=== PATIENT | female | born 1940 | race Caucasian/White ===

== ENCOUNTER 2023-02-10 17:30 | Inpatient (IN) ==
[2023-02-10] MEDS ORDERED: NS 0.9% 1000 ml BAG 1,000 ML IV ONE (17:38)
[2023-02-10] MEDS ORDERED: Magnesium Sulfate 2 gm BAG 2 GM/50 ML BAG IVPB ONE (17:41)
[2023-02-10 17:48] LABS: ABS Eosinophils 0.2 10^3/uL (0.0-0.5); ABS Lymphocytes 1.3 10^3/uL (1.0-4.8); ABS Monocytes 0.5 10^3/uL (0.0-0.9); ABS Nucleated RBC 0.01 10^3/ul; Eosinophil % 2.6 %; Hematocrit 36.3 % (35-45); Hemoglobin 12.3 g/dL (11.5-14.3); Lymphocyte % 21.4 %; Mean Corpuscular Hgb Conc 33.8 g/dL (31-36); Mean Corpuscular Volume 82.9 fL (80-97); Mean Platelet Volume 7.5 fL (7.5-11.2); Nucleated Red Blood Cells % 0.1 /100 WBC (0.0-0.4); Platelet Count 178 10^3/uL (150-450); Red Blood Count 4.38 10^6/uL (3.63-4.92); Red Cell Distribution Width 14.8 % (12-17); White Blood Count 5.9 10^3/uL (3.8-11.8)
[2023-02-10 17:57] LABS: Activated Partial Thrombo Time 29.4 seconds (26.0-38.0); INR 1.1 (0.88-1.18)
[2023-02-10 18:05] LABS: Albumin 3.2 g/dL (3.2-5.2); Albumin/Globulin Ratio 0.9 (1-3); C Reactive Protein 23.93 mg/L (<8.01); Calcium 9.1 mg/dL (8.6-10.3); Creatinine, Serum 0.78 mg/dL (0.51-0.95); Globulin 3.6 g/dL (2-4); Magnesium 1.9 mg/dL (1.9-2.7); Potassium 3.9 mmol/L (3.5-5.0); Total Bilirubin 0.5 mg/dL (0.2-1.0); Total Protein 6.8 g/dL (6.4-8.9); eGFR CKD-EPI 75.3 (>60)
[2023-02-10 19:18] LABS: Urine Appearance Clear; Urine Bilirubin Negative (Negative); Urine Blood Negative (Negative); Urine Color Yellow; Urine Glucose Negative (Negative); Urine Ketones Negative (Negative); Urine Nitrite Negative (Negative); Urine Protein Negative (Negative); Urine Specific Gravity 1.011 (1.002-1.030); Urine Urobilinogen Negative (Negative)
[2023-02-10 19:22] LABS: High Sensitivity Troponin 1 Hr 9 pg/mL (<15)
[2023-02-10] MEDS ORDERED: Iohexol 350 (CONTRAST) 500 ML MDV IV ONE (19:37)
[2023-02-10] MEDS ORDERED: Acetaminophen IV 1 GM/100ML 1,000 MG/100 ML BAG IV ONE (20:53)
[2023-02-10 23:27] LABS: HDL Cholesterol 25.3 mg/dL
[2023-02-10 23:41] LABS: TSH Ultra Thyroid Stim Horm 0.98 mcIU/mL (0.34-5.60)
[2023-02-11] MEDS ORDERED: Acetaminophen IV 1 GM/100ML 1,000 MG/100 ML BAG IV PRN (00:07)
[2023-02-11] MEDS ORDERED: Enoxaparin 40 MG/0.4 ML SYR SUBCUT SCH (04:00)
[2023-02-11] MEDS: Ondansetron 4 mg VIAL 2 MG/ML 2 ml VIAL IV PRN ×2 (04:23→10:57)
[2023-02-11 07:06] LABS: Hematocrit 37.5 % (35-45); Hemoglobin 12.7 g/dL (11.5-14.3); Mean Corpuscular Hemoglobin 28.1 pg (27-33); Mean Corpuscular Hgb Conc 33.8 g/dL (31-36); Mean Corpuscular Volume 83.2 fL (80-97); Mean Platelet Volume 7.9 fL (7.5-11.2); Platelet Count 183 10^3/uL (150-450); Red Blood Count 4.51 10^6/uL (3.63-4.92); Red Cell Distribution Width 14.4 % (12-17); White Blood Count 7.7 10^3/uL (3.8-11.8)
[2023-02-11 07:28] LABS: Albumin 3.1 g/dL (3.2-5.2); Calcium 8.7 mg/dL (8.6-10.3); Creatinine, Serum 0.68 mg/dL (0.51-0.95); Globulin 3.2 g/dL (2-4); Magnesium 2.2 mg/dL (1.9-2.7); Potassium 3.8 mmol/L (3.5-5.0); Total Bilirubin 0.4 mg/dL (0.2-1.0); Total Protein 6.3 g/dL (6.4-8.9); eGFR CKD-EPI 86.4 (>60)
[2023-02-11] MEDS ORDERED: Acetaminophen IV 1 GM/100ML 1,000 MG/100 ML BAG IV ONE ×2 (09:14→10:30)
[2023-02-11] MEDS ORDERED: Gadoteridol (CONTRAST) 279.3 MG/ML 10 ML IV ONE (09:37)
[2023-02-11] MEDS ORDERED: Acyclovir IV 600 MG in NS 0.9% 250 ml 250 ML IVPB SCH (12:00)
[2023-02-11] MEDS: Acyclovir IV 600 MG in NS 0.9% 100 ml BAG 100 ML IVPB SCH ×2 (12:47→19:47)
[2023-02-11] MEDS ORDERED: Lactated Ringers 1000 ml BAG 1,000 ML IV SCH (14:00)
[2023-02-11] MEDS ORDERED: Iohexol 350 (CONTRAST) 500 ML MDV IV ONE (14:07)
[2023-02-11] MEDS ORDERED: Ondansetron 4 mg VIAL 2 MG/ML 2 ml VIAL IV PRN (17:02)
[2023-02-11] MEDS: Acetaminophen IV 1 GM/100ML 1,000 MG/100 ML BAG IV PRN (20:56)
[2023-02-12] MEDS ORDERED: Morphine 2 MG/ML SYRINGE IV ONE (00:29)
[2023-02-12] MEDS: Acetaminophen IV 1 GM/100ML 1,000 MG/100 ML BAG IV PRN ×3 (04:03→19:43)
[2023-02-12] MEDS: Acyclovir IV 600 MG in NS 0.9% 100 ml BAG 100 ML IVPB SCH ×3 (04:20→23:47)
[2023-02-12 07:01] LABS: ABS Lymphocytes 1.2 10^3/uL (1.0-4.8); ABS Monocytes 0.5 10^3/uL (0.0-0.9); ABS Neutrophils 5.7 10^3/uL (1.5-7.6); ABS Nucleated RBC 0.01 10^3/ul; Eosinophil % 0.5 %; Hematocrit 35.2 % (35-45); Hemoglobin 12.1 g/dL (11.5-14.3); Lymphocyte % 16.7 %; Mean Corpuscular Hemoglobin 28.4 pg (27-33); Mean Corpuscular Hgb Conc 34.3 g/dL (31-36); Mean Corpuscular Volume 82.7 fL (80-97); Mean Platelet Volume 7.9 fL (7.5-11.2); Nucleated Red Blood Cells % 0.1 /100 WBC (0.0-0.4); Platelet Count 221 10^3/uL (150-450); Red Blood Count 4.26 10^6/uL (3.63-4.92); Red Cell Distribution Width 14.3 % (12-17); White Blood Count 7.4 10^3/uL (3.8-11.8)
[2023-02-12 07:12] LABS: Albumin/Globulin Ratio 0.9 (1-3); Calcium 8.9 mg/dL (8.6-10.3); Creatinine, Serum 0.67 mg/dL (0.51-0.95); Globulin 3.2 g/dL (2-4); Potassium 3.9 mmol/L (3.5-5.0); Total Bilirubin 0.5 mg/dL (0.2-1.0); Total Protein 6.2 g/dL (6.4-8.9); eGFR CKD-EPI 86.7 (>60)
[2023-02-12] MEDS ORDERED: D5LR 1000 ml BAG 1,000 ML IV SCH (09:00)
[2023-02-12 16:04] LABS: Body Fluid Source Cerebral Spinal
[2023-02-12 16:11] LABS: Body Fluid Appearance Clear; Body Fluid Color Colorless; CSF Tube # 4
[2023-02-12 16:20] LABS: CSF Glucose 48 mg/dL (40-70)
[2023-02-12 17:12] LABS: Body Fluid Mono 15 %; Body Fluid Total Cells Counted 200
[2023-02-12 17:13] LABS: Body Fluid WBC 68 /mcL
[2023-02-12] MEDS ORDERED: VANCOMYCIN IVPB ONE (17:38)
[2023-02-12] MEDS ORDERED: NS 0.9% IVPB ONE (17:38)
[2023-02-12] MEDS ORDERED: Vancomycin per Pharmacy 1 EA NOTE FOLLOW UP SCH (18:00)
[2023-02-12] MEDS: cefTRIAXone 2 gm/50 mL D5W 2 GM/50 ML BAG IV SCH (18:43)
[2023-02-13] MEDS: Acetaminophen IV 1 GM/100ML 1,000 MG/100 ML BAG IV PRN ×4 (00:54→23:45)
[2023-02-13] MEDS: cefTRIAXone 2 gm/50 mL D5W 2 GM/50 ML BAG IV SCH ×2 (05:34→18:54)
[2023-02-13 06:58] LABS: Hematocrit 34.9 % (35-45); Hemoglobin 11.9 g/dL (11.5-14.3); Mean Corpuscular Hemoglobin 28.1 pg (27-33); Mean Corpuscular Volume 82.6 fL (80-97); Mean Platelet Volume 7.1 fL (7.5-11.2); Platelet Count 213 10^3/uL (150-450); Red Blood Count 4.23 10^6/uL (3.63-4.92); Red Cell Distribution Width 14.2 % (12-17); White Blood Count 4.7 10^3/uL (3.8-11.8)
[2023-02-13 07:19] LABS: Calcium 8.5 mg/dL (8.6-10.3); Creatinine, Serum 0.63 mg/dL (0.51-0.95); Magnesium 1.8 mg/dL (1.9-2.7); Potassium 3.4 mmol/L (3.5-5.0)
[2023-02-13] MEDS ORDERED: Magnesium Sulfate 2 gm BAG 2 GM/50 ML BAG IVPB ONE (07:33)
[2023-02-13] MEDS: KCL 20 MEQ/100 ML IVPREMIX 20 MEQ/100 ML BAG IV SCH ×2 (10:04→12:48)
[2023-02-13] MEDS: Acyclovir IV 600 MG in NS 0.9% 100 ml BAG 100 ML IVPB SCH ×2 (11:32→17:03)
[2023-02-13 13:19] LABS: C Reactive Protein 10.7 mg/L (<8.01)
[2023-02-13] MEDS ORDERED: Vancomycin per Pharmacy 1 EA NOTE FOLLOW UP SCH (14:00)
[2023-02-13] MEDS ORDERED: Vancomycin 1,250 MG in NS 0.9% 250 ml 250 ML IVPB ONE (14:00)
[2023-02-13] MEDS ORDERED: D5LR 1000 ml BAG 1,000 ML IV SCH (14:00)
[2023-02-13] MEDS: Enoxaparin 40 MG/0.4 ML SYR SUBCUT SCH (21:04)
[2023-02-14] MEDS: Acyclovir IV 600 MG in NS 0.9% 100 ml BAG 100 ML IVPB SCH ×3 (00:06→15:23)
[2023-02-14] MEDS: Vancomycin 1,500 MG in NS 0.9% 250 ml 250 ML IVPB SCH ×2 (01:37→13:25)
[2023-02-14] MEDS: Acetaminophen IV 1 GM/100ML 1,000 MG/100 ML BAG IV PRN ×2 (05:35→16:06)
[2023-02-14] MEDS: cefTRIAXone 2 gm/50 mL D5W 2 GM/50 ML BAG IV SCH ×2 (05:52→16:59)
[2023-02-14 07:04] LABS: Hematocrit 38.8 % (35-45); Hemoglobin 13.2 g/dL (11.5-14.3); Mean Corpuscular Hemoglobin 28.2 pg (27-33); Mean Corpuscular Hgb Conc 34.1 g/dL (31-36); Mean Corpuscular Volume 82.8 fL (80-97); Mean Platelet Volume 7.5 fL (7.5-11.2); Platelet Count 268 10^3/uL (150-450); Red Blood Count 4.68 10^6/uL (3.63-4.92); Red Cell Distribution Width 14.1 % (12-17); White Blood Count 5.8 10^3/uL (3.8-11.8)
[2023-02-14 07:11] LABS: Calcium 8.9 mg/dL (8.6-10.3); Creatinine, Serum 0.58 mg/dL (0.51-0.95); Magnesium 1.9 mg/dL (1.9-2.7); Potassium 3.2 mmol/L (3.5-5.0); eGFR CKD-EPI 89.7 (>60)
[2023-02-14] MEDS ORDERED: Magnesium Sulfate 2 gm BAG 2 GM/50 ML BAG IVPB ONE (07:20)
[2023-02-14] MEDS: KCL 20 MEQ/100 ML IVPREMIX 20 MEQ/100 ML BAG IV SCH ×2 (08:50→11:18)
[2023-02-14] MEDS ORDERED: BENZOCAINE/MENTHOL (ORAJEL)20% 1 APPLIC TOP.GEL TOPICAL PRN (09:10)
[2023-02-14] MEDS ORDERED: D5LR 1000 ml BAG 1,000 ML IV SCH (10:00)
[2023-02-14 14:00] LABS: Albumin 3.2 g/dL (3.2-5.2); Calcium 8.7 mg/dL (8.6-10.3); Creatinine, Serum 0.62 mg/dL (0.51-0.95); Globulin 3.3 g/dL (2-4); Magnesium 2.4 mg/dL (1.9-2.7); Phosphorus 2.9 mg/dL (2.5-5.0); Potassium 3.8 mmol/L (3.5-5.0); Total Bilirubin 0.5 mg/dL (0.2-1.0); Total Protein 6.5 g/dL (6.4-8.9); eGFR CKD-EPI 88.3 (>60)
[2023-02-14 16:21] LABS: CSF Oligoclonal Bands 14 bands; Oligoclonal Proteins Interpret 2 bands (<2); Serum Oligoclonal Bands 12 bands
[2023-02-14] MEDS ORDERED: PPN (PERIPHERAL) 24 HR with D10W 1000 ml BAG 1,000 ML, Amino Acid Infusion 10% 850 ML, ... IV SCH (17:00)
[2023-02-14 17:30] LABS: CSF Cryptococcus Antigen Titer Negative (Negative)
[2023-02-14] MEDS: Enoxaparin 40 MG/0.4 ML SYR SUBCUT SCH (20:15)
[2023-02-15] MEDS: Acyclovir IV 600 MG in NS 0.9% 100 ml BAG 100 ML IVPB SCH ×3 (00:11→15:19)
[2023-02-15] MEDS: Acetaminophen IV 1 GM/100ML 1,000 MG/100 ML BAG IV PRN ×3 (00:13→17:01)
[2023-02-15 01:19] LABS: HSV 1 PCR, CSF Negative (Negative); HSV 2 PCR, CSF Negative (Negative)
[2023-02-15 05:23] LABS: Hematocrit 37.3 % (35-45); Hemoglobin 12.8 g/dL (11.5-14.3); Mean Corpuscular Hemoglobin 27.9 pg (27-33); Mean Corpuscular Hgb Conc 34.3 g/dL (31-36); Mean Corpuscular Volume 81.4 fL (80-97); Platelet Count 265 10^3/uL (150-450); Red Blood Count 4.58 10^6/uL (3.63-4.92); Red Cell Distribution Width 14.1 % (12-17); White Blood Count 5.1 10^3/uL (3.8-11.8)
[2023-02-15] MEDS: cefTRIAXone 2 gm/50 mL D5W 2 GM/50 ML BAG IV SCH (05:35)
[2023-02-15 05:41] LABS: Albumin 3.1 g/dL (3.2-5.2); Calcium 8.6 mg/dL (8.6-10.3); Creatinine, Serum 0.53 mg/dL (0.51-0.95); Globulin 3.2 g/dL (2-4); Phosphorus 2.8 mg/dL (2.5-5.0); Potassium 3.4 mmol/L (3.5-5.0); Total Bilirubin 0.4 mg/dL (0.2-1.0); Total Protein 6.3 g/dL (6.4-8.9); eGFR CKD-EPI 91.7 (>60)
[2023-02-15] MEDS ORDERED: KCL 20 MEQ/100 ML IVPREMIX 20 MEQ/100 ML BAG IV ONE (06:05)
[2023-02-15 06:17] LABS: Platelet Morphology Large
[2023-02-15 06:18] LABS: ABS Basophils 0.1 10^3/uL (0.0-0.1); ABS Eosinophils 0.4 10^3/uL (0.0-0.5); ABS Monocytes 0.6 10^3/uL (0.0-0.9); ABS Nucleated RBC 0.01 10^3/ul; Eosinophil % 7.4 %; Lymphocyte % 18.7 %; Nucleated Red Blood Cells % 0.1 /100 WBC (0.0-0.4)
[2023-02-15] MEDS: KCL 20 MEQ/100 ML IVPREMIX 20 MEQ/100 ML BAG IV SCH ×2 (11:16→15:20)
[2023-02-15] MEDS ORDERED: Vancomycin Trough Check NOTE FOLLOW UP ONE (13:30)
[2023-02-15 15:44] LABS: IgG Immunoblot Positive (Negative); IgM Immunoblot Positive (Negative)
[2023-02-15] MEDS ORDERED: TPN 24 HR with Dextrose 50% Water 500 ML, Amino Acid Infusion 10% 850 ML, Sterile Water... CENT\\PICC SCH (17:00)
[2023-02-15 18:44] VITALS: BP 150/66
[2023-02-16 01:11] LABS: B. burgdorferi PCR Negative (Negative); B. garinii/B. afzellii PCR Negative (Negative); Lyme Disease Source CSF
[2023-02-16 01:12] LABS: Anaplasma phagocytophilum Positive (Negative); B. miyamotoi PCR, B Negative (Negative); Babesia divergens/MO-1 Negative (Negative); Babesia ducani Negative (Negative); Ehrlichia chaffeensis Negative (Negative); Ehrlichia ewingii/canis Negative (Negative); Ehrlichia muris eauclairensis Negative (Negative)
[2023-02-17 15:19] LABS: CSF VDRL Negative (Negative)
[2023-02-17 18:20] LABS: CSF West Nile Virus IgG Ab Negative (Negative); CSF West Nile Virus IgM Ab Negative (Negative)
== END 2023-02-15 19:15 | disposition short-term general hospital (02) | DRG 98 ==
LOC: EDHOLD 17:30 → ED 17:30 → SUATTDRO 22:15 → MEDTELE 23:12 → SUATTDRO 02-12 16:19
PROVIDERS: ADMIT Internal Medicine; ATTEND Internal Medicine